=== PATIENT | male | born 1940 | race Caucasian/White ===

== ENCOUNTER 2017-06-22 10:38 | Inpatient (IN) | payer OTHER ==
[2017-06-02 11:24] VITALS: Ht 182.9 cm; Wt 100.6 kg
--- NOTE | 2017-06-02 12:12 | PAT Medication Instructions ---
Service Date Jun 02, 2017. Current Home Medication List Acetaminophen W/ Codeine (Tylenol/Codeine #4), 1 TAB PO QID PRN for Pain B-Complex Vitamins (Vitamin B Complex), 1 TAB PO QAM Dallrii-Hhbwqzxjr-Sfus (Calcium/Magnesium/Zinc 333.33-133.33-5 mg), 1 TAB PO QAM Coenzyme Q10 (Ubidecarenone) (Coq-10), 1 TAB PO QAM Ezetimibe (Zetia), 10 MG PO QAM Fluticasone Propionate (Nasal) (Flonase Allergy Relief), 2 SPRAYS NA QD PRN for Nasal Congestion Ibuprofen Tab (Advil), 800 MG PO QD PRN for Pain Krill Oil (Krill Oil), 1 CAP PO QAM Red Yeast Rice Extract (Red Yeast Rice), 2 TAB PO QAM Telmisartan (Micardis), 80 MG PO QAM Vitamin D & K (D3 + K2 Dots), 1 TAB PO QAM Vitamin E (E-400), 1 CAP PEG QAM [active C], 500 MG PO QAM Medication Instructions For Your Scheduled Surgery - Hold the following medications 2 weeks prior to surgery: Vitamin E (E-400), 1 CAP PEG QAM Krill Oil (Krill Oil), 1 CAP PO QAM Red Yeast Rice Extract (Red Yeast Rice), 2 TAB PO QAM Coenzyme Q10 (Ubidecarenone) (Coq-10), 1 TAB PO QAM - Check with surgeon for instructions: Ibuprofen Tab (Advil), 800 MG PO QD PRN for Pain - Hold the following medications the morning of surgery: B-Complex Vitamins (Vitamin B Complex), 1 TAB PO QAM Gltrwpz-Wrckeeynk-Ejib (Calcium/Magnesium/Zinc 333.33-133.33-5 mg), 1 TAB PO QAM Telmisartan (Micardis), 80 MG PO QAM Vitamin D & K (D3 + K2 Dots), 1 TAB PO QAM [active C], 500 MG PO QAM - Take the following medications the morning of surgery with a sip of water: Fluticasone Propionate (Nasal) (Flonase Allergy Relief), 2 SPRAYS NA QD PRN for Nasal Congestion Ezetimibe (Zetia), 10 MG PO QAM Acetaminophen W/ Codeine (Tylenol/Codeine #4), 1 TAB PO QID PRN for Pain (okay to take up to 4 hours prior to surgery if needed) - Take the following medications as scheduled the night before surgery: Fluticasone Propionate (Nasal) (Flonase Allergy Relief), 2 SPRAYS NA QD PRN for Nasal Congestion(if needed) Acetaminophen W/ Codeine (Tylenol/Codeine #4), 1 TAB PO QID PRN for Pain (if needed) If you have any questions please call us at [phone] or [phone] or [phone]
[2017-06-02 12:25] LABS: BASO % 0.9 %; BASO ABS # 0.05 K/uL (0-0.2); EOS % 3.5 %; EOS ABS # 0.19 K/uL (0-0.5); HEMATOCRIT 44.5 % (42-52); HEMOGLOBIN 15.6 g/dL (14.0-18.0); LYMPH % 30.9 %; LYMPH ABS # 1.68 K/uL (1.2-3.4); MEAN CELL VOLUME 89.5 fL (80-100); MEAN CORPUSCULAR HEMOGLOBIN 31.4 pg (25-34); MEAN CORPUSCULAR HGB CONC 35.1 g/dl (32-36); MEAN PLATELET VOLUME 9.1 fL (7.4-10.4); MONO % 6.8 %; MONO ABS # 0.37 K/uL (0.11-0.59); NEUT % 57.9 %; NEUT ABS # 3.14 K/uL (1.4-6.5); PLATELET COUNT 236 K/uL (130-400); RED CELL DISTRIBUTION WIDTH SD 45.8 fL (36.4-46.3); WHITE BLOOD COUNT 5.43 K/uL (4.8-10.8)
--- NOTE | 2017-06-02 12:32 | DIAGNOSTIC IMAGING REPORT ---
CHEST 2 VIEWS ROUTINE CLINICAL HISTORY: pat preoperative evaluation COMPARISON STUDY: No previous studies for comparison. FINDINGS: Mild emphysematous change. No significant cardiac enlargement. No focal infiltrate. Moderate degenerative change thoracic spine. IMPRESSION: Emphysematous change. No acute process. The above report was generated using voice recognition software. It may contain grammatical, syntax or spelling errors. Electronically signed by: Bob Rosenbaum M.D. 06/02/2017 12:30 PM Dictated Date/Time: 06/02/2017 12:30 PM
[2017-06-02 12:37] LABS: PTT PATIENT 26.6 SECONDS (21.0-31.0)
[2017-06-02 12:39] LABS: CALCIUM 9.4 mg/dl (8.5-10.1); CREATININE 1.06 mg/dl (0.60-1.40); POTASSIUM 4.7 mmol/L (3.5-5.1)
--- NOTE | 2017-06-21 17:17 | HISTORY & PHYSICAL EXAMINATION ---
DATE OF ADMISSION: 06/22/2017 HISTORY AND PHYSICAL ADMISSION NOTE CHIEF COMPLAINT: Primary osteoarthritis of the left hip. HISTORY OF PRESENT ILLNESS: Joon is a pleasant 76-year-old male who has been having several year history of left hip pain. The pain comes from his back and radiates down the anterior aspect of his hip. He has lot of pain in the groin. He did have an MRI of his back, which showed stenosis at L4-L5, but he went to pain management and injections in his hip gave him complete relief. He then presented to my office. X-rays of the left hip do show advanced osteoarthritis and after failing conservative treatment, he has elected to proceed with an anterior left total hip arthroplasty. PAST MEDICAL HISTORY: Significant for hyperlipidemia and hypertension. PAST SURGICAL HISTORY: Significant for surgery to his foot, hernia repair on the left side and a left total knee arthroplasty. ALLERGIES: None. MEDICATIONS: Include Micardis 80 mg, Zetia 10 mg, Flonase 50 mcg, calcium, magnesium, zinc and several other vitamins and minerals. FAMILY HISTORY: Significant for stroke; bladder, breast and lung cancer. SOCIAL HISTORY: He is , has 3 kids. Never drinks, is moderately active. REVIEW OF SYSTEMS: Complains mostly of left hip and groin pain. All other pertinent review of systems is negative. PHYSICAL EXAMINATION: GENERAL: He is awake, alert and orient x3; he is no apparent distress. He is very pleasant. HEENT: Pupils equal, round, reactive to light. Extraocular motors intact. Oral mucosa is pink and moist. HEART: Regular rate per radial pulse. LUNGS: Nisha symmetrically bilaterally with no audible breath sounds. ABDOMEN: Soft, nontender, nondistended. MUSCULOSKELETAL: On physical examination, he walks with a slightly antalgic gait. All his pain is located in his groin. He has trouble lying flat on the table. I can flex him to 80 degrees with his hip. He has 0 degrees of internal rotation, severe groin pain. He has about 20 degrees of external rotation. IMAGING DATA: X-rays of the left hip do show advanced osteoarthritis with joint space narrowing and osteophyte formation. IMPRESSION: Advanced osteoarthritis of the left hip. PLAN: We will proceed with an anterior left total hip arthroplasty. Postoperatively, he will be started on aspirin for DVT prophylaxis and kept overnight in the hospital for postoperative medical management.
[~2017-06-22] VITALS: Ht 182.9 cm; Wt 100.6 kg
[2017-06-22] VITALS (7 sets, daily range): BP systolic 117–155; BP diastolic 71–84; PULSE 57–71; TEMP 36.4–36.5; O2SAT 93–98
[~2017-06-22 10:38] MED LIST: ACET-1079 PO; ACETAMINOPHEN 500 MG TAB PO SCH; B-COTAB18 PO; BUPIVACAINE 0.5 % 5 MG/1 ML PF 10ML VIAL ONE; CEFAZOLIN 2000MG IV PUSH 15 ML IV SCH; COEN100C11 PO; EZET10TA63 PO; FAMOTIDINE 20 MG TAB PO SCH; FLUT0.15; GABAPENTIN 300 MG CAP PO SCH; IBUP-103 PO; KRIL1000 PO; LACTATED RINGER'S 1000ML IV SCH; RED600TA PO; TELM80TA PO; VITACAP37 PEG; VITATAB8 PO; [UNRECOGNIZED DRUG - CODE] PO; [UNRECOGNIZED DRUG - OTHER] PO
[2017-06-22] MEDS ORDERED: ATROPINE SULFATE 0.1 MG/ML 5ML SYR IV PRN (11:45)
[2017-06-22] MEDS ORDERED: FENTANYL CITRATE INJ 50 MCG/1 ML 2 ML VIAL IV PRN (11:45)
[2017-06-22] MEDS ORDERED: ONDANSETRON INJ 2 MG/ML 2 ML VIAL IV PRN ×2 (11:45→17:00)
[2017-06-22] MEDS ORDERED: EpHEDrine SULFATE INJ 50 MG/ML AMP IV PRN (11:45)
--- NOTE | 2017-06-22 11:55 | History & Physical Bridge Note ---
H&P Re-Evaluation Bridge Note: I have examined the patient, reviewed the History & Physical and in the interval since the performance of the History & Physical I have noted the following changes of clinical significance: No changes noted
[2017-06-22] MEDS ORDERED: PHENYLEPHRINE 100MCG/ML 5ML SYR ONE (12:33)
[2017-06-22] MEDS ORDERED: EpHEDrine SULFATE 50MG/5ML SYR ONE (12:33)
[2017-06-22] MEDS ORDERED: PROPOFOL IV EMULSION 10 MG/ML 20 ML VIAL IV ONE ×4 (12:33→16:28)
[2017-06-22] MEDS ORDERED: MIDAZOLAM HCL 1 MG/ML 2ML VIAL ONE ×3 (12:33→16:13)
[2017-06-22] MEDS ORDERED: LIDOCAINE HCL 2% 2 ML VIAL (20MG/ML) ONE ×2 (12:33→15:12)
[2017-06-22] MEDS ORDERED: FENTANYL CITRATE INJ 50 MCG/1 ML 2 ML VIAL ONE (12:33)
[2017-06-22] MEDS ORDERED: BACITRACIN 50000 UNIT VIAL ONE (13:46)
[2017-06-22] MEDS ORDERED: ORTHO JOINT ANESTHETIC ONE (13:46)
[2017-06-22] MEDS: TRANEXAMIC ACID INJ 1,000 MG x 2 Bags IV SCH ×4 (13:56→18:00)
[2017-06-22] MEDS ORDERED: ROPIVACAINE 5MG/ML 30 ML 150 MG, BUPIVACAINE 0.5% MPF INJ 30 ML, EpINEphrine HCL INJ 0.... INFIL SCH ×8 (15:00)
[2017-06-22] MEDS ORDERED: ONDANSETRON INJ 2 MG/ML 2 ML VIAL ONE (15:12)
[2017-06-22] MEDS ORDERED: WATER, STERILE FOR INJ 10 ML VIAL ONE (15:13)
[2017-06-22] MEDS ORDERED: EpHEDrine SULFATE INJ 50 MG/ML AMP ONE (15:13)
--- NOTE | 2017-06-22 16:42 | DIAGNOSTIC IMAGING REPORT ---
L HIP UNILATERAL 1 VIEW CLINICAL HISTORY: LEFT ANTERIOR HIP joint replacement COMPARISON: None. DISCUSSION: Image intensifier was utilized for a left hip replacement via an anterior approach. Expected soft tissue postoperative change. IMPRESSION: Image intensifier utilized for a total left hip replacement via an anterior approach. The above report was generated using voice recognition software. It may contain grammatical, syntax or spelling errors. Electronically signed by: Bob Rosenbaum M.D. 06/22/2017 4:40 PM Dictated Date/Time: 06/22/2017 4:39 PM
--- NOTE | 2017-06-22 16:51 | [facility] Post Operative Brief Note ---
Immediate Operative Summary Operative Date Jun 22, 2017. Pre-Operative Diagnosis Advanced osteoarthritis of the left hip Post-Operative Diagnosis Advanced osteoarthritis of the left hip Procedure(s) Performed Left Anterior Total Hip Replacement-Uncemented Surgeon Dr. Rodríguez Outreach Analyst Surgeon(s) Anika RAMIREZ Estimated Blood Loss 250ml Findings Consistent with Post-Op Diagnosis Specimens a. left femoral head Drains None Anesthesia Type Spinal MAC Complication(s) none Disposition Disposition: Recovery Room / PACU
[2017-06-22] MEDS ORDERED: FLUTICASONE PROPIONATE NA SPR 16 GM BTL PRN (17:00)
[2017-06-22] MEDS ORDERED: SOD PHOSPHATE/SOD BIPHOSPHATE ENEMA 132 ML BTL PR PRN (17:00)
[2017-06-22] MEDS ORDERED: MoRPHine SULFATE 2 MG/ML CARP IV PRN (17:00)
[2017-06-22] MEDS ORDERED: METOCLOPRAMIDE HCL INJ 5 MG/ML 2 ML VIAL IV PRN (17:00)
[2017-06-22] MEDS ORDERED: BISACODYL 10 MG SUPP PR PRN (17:00)
[2017-06-22] MEDS ORDERED: MAGNESIUM HYDROXIDE SUSP 30 ML UDC PO PRN (17:00)
[2017-06-22] MEDS ORDERED: OXYCODONE HCL IR 5 MG TAB (IMMEDIATE RELEASE) PO PRN (17:00)
--- NOTE | 2017-06-22 17:16 | OPERATIVE REPORT ---
DATE OF OPERATION: 06/22/2017 PREOPERATIVE DIAGNOSIS: Primary osteoarthritis of the left hip. POSTOPERATIVE DIAGNOSIS: Same. PROCEDURE: Left total hip arthroplasty. SURGEON: Dr. Tal Rodríguez. DIRECTOR PATIENT FINANCIAL SERVICES: Juan Bullock PA-C, whose assistance was necessary for retraction and closure. ANESTHESIA: Spinal. COMPLICATIONS: None. CONDITION: Stable to PACU. IMPLANTS USED: I used a [employer] Taperloc total hip arthroplasty system with a size 54-mm G7 cup, a 40-mm E1 poly liner, 16-mm standard pressfit Taperloc stem, a 40-mm ceramic head with a -6 neck and a single 6.5-mm screw. INDICATIONS: Joon is a pleasant 76-year-old male who presented to my office with chronic left hip and groin pain. He had extensive lumbar workup, but after injections into his hip, his pain subsided. Once his pain returned, he elected to proceed with a left total hip arthroplasty. DESCRIPTION OF PROCEDURE: On 06/22/2017, he arrived at the [facility] for the above procedure. He was seen in the preoperative holding area and the operative extremity was identified and signed. He was given a preoperative antibiotic and a spinal anesthetic. He was taken back to the operating room, laid on the table in supine position and put under basic sedation. The left hip was then prepped and draped in sterile fashion. Time-out was done and the patient's operative extremity was properly identified. An anterior approach was used. Dissection was taken down through the fascia and the tensor muscle belly was retracted laterally and the rectus was retracted medially. The circumflex vessels were ligated and the capsule was incised. The capsule was tagged for later repair. The femoral neck was then resected and the femoral head was removed. The acetabulum was then exposed. Time was spent doing a complete circumferential capsular and labral release. Sequential reaming of the acetabulum up to a size 53 reamer was done. Final reaming was checked under fluoroscopy. A 54-mm G7 cup was then impacted into place. I was able to get an excellent pressfit and a single 6.5-mm screw was placed. An E1 poly liner was then snapped into place. Surrounding soft tissues were injected with 100 mL of an orthopedic pain control cocktail. The proximal femur was then exposed. Sequential broaching up to a size 16 broach was done. A standard head and neck assembly was applied and the hip was reduced. I was happy with the overall size of the implants, but the leg seemed a little bit long. The trials were then removed. The final size 16 stem was impacted into place. A size 40 ceramic head with a -6 neck was then impacted into place. The hip was then reduced. Final fluoroscopic images showed anatomic alignment. The wound was then irrigated with 3 liters of normal saline solution with bacitracin. The capsule was then closed with #1 Vicryl suture. Fascia was closed with #1 PDS. Skin was closed with 2-0 Vicryl, ken and a Prevena VAC dressing. He was then transferred to a hospital bed and taken to the post and he came in stable condition. He tolerated the procedure well. I attest to the content of the Intraoperative Record and any orders documented therein. Any exception s are noted below.
--- NOTE | 2017-06-22 17:18 | DIAGNOSTIC IMAGING REPORT ---
AP PELVIS AND LEFT HIP 2 VIEWS CLINICAL HISTORY: Postop hip arthroplasty osteoarthritis COMPARISON STUDY: Outside conventional radiographic study dated May 18, 2017 FINDINGS: There are postsurgical changes of a total left hip arthroplasty. The acetabular and femoral components appear well seated. There is no dislocation. IMPRESSION: Postsurgical changes of a total left hip arthroplasty. Electronically signed by: Johan Tinsley M.D. 06/22/2017 5:17 PM Dictated Date/Time: 06/22/2017 5:16 PM
--- NOTE | 2017-06-22 17:29 | Anesthesiology Progress Note ---
Anesthesia Post Op Note Date & Time Jun 22, 2017 at 17:28 Vital Signs Pain Intensity: 0 Vital Signs Past 12 Hours Date Time Temp Pulse Resp B/P (MAP) Pulse Ox O2 Delivery O2 Flow Rate FiO2 06/22/17 17:15 57 16 131/72 95 Nasal Cannula 3 06/22/17 17:05 55 16 124/77 97 Oxymask 5 06/22/17 16:59 36.5 61 16 119/63 97 Oxymask 10 06/22/17 11:17 36.5 61 18 155/77 95 Room Air Notes Mental Status: alert / awake / arousable, participated in evaluation Pt Amnestic to Procedure: Yes Nausea / Vomiting: adequately controlled Pain: adequately controlled Airway Patency, RR, SpO2: stable & adequate BP & HR: stable & adequate Hydration State: stable & adequate Anesthetic Complications: no major complications apparent
[2017-06-22] MEDS: KETOROLAC TROMETHAMINE 15 MG/ML VIAL IV. SCH ×2 (19:04→23:01)
[2017-06-22] MEDS: ACETAMINOPHEN IV 1,000 MG in EMPTY BAG 0 ML IV SCH (20:41)
[2017-06-22] MEDS: CEFAZOLIN IV 2,000 MG in SYRINGE 0 ML IV SCH (20:42)
[2017-06-22] MEDS: DOCUSATE SODIUM 100 MG CAP PO SCH (20:43)
[2017-06-22] MEDS: SENNA 8.6 MG TAB PO SCH (20:43)
[2017-06-22] MEDS: ASPIRIN 325 MG ECTAB PO SCH (20:43)
[2017-06-22] MEDS: SODIUM CHLORIDE 0.9% 1000ML 1,000 ML IV SCH (20:44)
[2017-06-23] VITALS (7 sets, daily range): BP systolic 100–133; BP diastolic 64–80; PULSE 64–77; TEMP 36.3–36.7; O2SAT 94–96
[2017-06-23] MEDS: ACETAMINOPHEN IV 1,000 MG in EMPTY BAG 0 ML IV SCH ×2 (03:57→11:52)
[2017-06-23] MEDS: CEFAZOLIN IV 2,000 MG in SYRINGE 0 ML IV SCH (03:57)
[2017-06-23] MEDS: SODIUM CHLORIDE 0.9% 1000ML 1,000 ML IV SCH ×2 (03:58→14:02)
[2017-06-23] MEDS: KETOROLAC TROMETHAMINE 15 MG/ML VIAL IV. SCH ×4 (05:41→23:22)
[2017-06-23 06:13] LABS: BASO % 0.1 %; BASO ABS # 0.01 K/uL (0-0.2); EOS % 0.1 %; EOS ABS # 0.01 K/uL (0-0.5); HEMATOCRIT 39.9 % (42-52); HEMOGLOBIN 13.6 g/dL (14.0-18.0); IG# 0.02 K/uL (0.00-0.02); LYMPH % 7.6 %; LYMPH ABS # 0.76 K/uL (1.2-3.4); MEAN CELL VOLUME 90.1 fL (80-100); MEAN CORPUSCULAR HEMOGLOBIN 30.7 pg (25-34); MEAN CORPUSCULAR HGB CONC 34.1 g/dl (32-36); MEAN PLATELET VOLUME 9.1 fL (7.4-10.4); MONO % 5.4 %; MONO ABS # 0.54 K/uL (0.11-0.59); NEUT % 86.6 %; NEUT ABS # 8.69 K/uL (1.4-6.5); PLATELET COUNT 191 K/uL (130-400); RED CELL DISTRIBUTION WIDTH CV 13.7 % (11.5-14.5); RED CELL DISTRIBUTION WIDTH SD 45.5 fL (36.4-46.3); WHITE BLOOD COUNT 10.03 K/uL (4.8-10.8)
[2017-06-23 06:40] LABS: CALCIUM 8.8 mg/dl (8.5-10.1); CREATININE 1.14 mg/dl (0.60-1.40); POTASSIUM 4.4 mmol/L (3.5-5.1)
--- NOTE | 2017-06-23 07:13 | Discharge Instructions ---
Discharge Instructions Date of Service Jun 23, 2017. Admission Reason for Admission: Left Hip Degenerative Joint Disease Discharge Discharge Diagnosis / Problem: Left Total Hip Discharge Goals Goal(s): Decrease discomfort, Improve function Activity Recommendations Activity Limitations: as noted below . Instructions / Follow-Up Instructions / Follow-Up Activity and Therapy Recommendations: * If you are using [facility] then Physical Therapy will be provided until they feel you are ready to start Outpatient Physical Therapy. If you are not using a Home Health agency then Outpatient Physical Therapy should start about 3-5 days from your day of surgery. Therapy will last about 3-6 weeks * You were shown a series of exercises in the hospital. Do these exercises three times each day including the exercises you were shown in physical therapy. * Get up and walk several times each day.~ For the first four weeks, try not to stand or walk for more than one hour at a time. If you do stand or walk for more than one hour, you will not hurt anything, but your leg will likely swell.~ ~ * As you feel comfortable, you may change from the walker or crutches to a cane and~then to independent walking. Medications: * Narcotic You will likely be sent home from the hospital with a prescription for the narcotic pain medication that worked best throughout your stay. * Aspirin Most patients will be required to take Aspirin 325mg twice a day for 6 weeks after surgery. This is obtained [id number] and a prescription is not necessary. * Other medications may be prescribed for specific circumstances. If you have any questions, please call the office at . * Resume previous home medications unless otherwise instructed TEDs/Elastic Stockings: The white elastic stockings help limit swelling and prevent blood clots from forming in your legs. The more you wear them, the more they work. Wear them for six weeks. Dressing Care: You will likely have a purple VAC dressing after surgery. This dressing will keep the incision dry and promote early healing. After about 8 days the batteries will wear out and the VAC will lose suction. Simply remove the dressing at that time and throw everything away, including the small suction machine. Then, you may leave the ken open to air or cover them with a dry dressing so they do not rub on your pants. The ken will be removed at your 2 week follow-up appointment. Showering: You may shower immediately with the purple VAC dressing. Let the shower spray hit your opposite side and slowly pat the plastic dry. Do not soak the dressing. After the dressing is removed you may shower normally with the ken exposed. Let soapy water run over the ken and pat them dry. Things To Watch For: * Drainage from the incision site that occurs more than one week after your surgery. * Increased redness at the incision site. * Fever above 102 degrees Fahrenheit. * Unusual chest pain or shortness of breath. * Call [facility] at with any of the above problems Follow-Up Visit: Follow-up with Dr. Rodríguez 2 weeks after your day of surgery. An appointment was probably scheduled when you signed-up for surgery in the office. If you have any questions call Office Instructions: More detailed instructions as well as Frequently Asked Questions were provided in a folder by our office when you signed-up for surgery. Please review these instructions when you get home. If you have any further questions or concerns, please feel free to call the office at [phone] Current Hospital Diet Patient's current hospital diet: Regular Diet Discharge Diet Recommended Diet: Regular Diet Procedures Procedures Performed: Left Anterior Total Hip Replacement-Uncemented Pending Studies Studies pending at discharge: no Medical Emergencies . Who to Call and When: Medical Emergencies: If at any time you feel your situation is an emergency, please call [phone] immediately. . Non-Emergent Contact Non-Emergency issues call your: Surgeon Call Non-Emergent contact if: wound has increased drainage, wound has increased redness . "Provider Documentation" section prepared by Tal Rodríguez. .
--- NOTE | 2017-06-23 07:22 | PROGRESS NOTE ---
DATE: 06/23/2017 CHIEF COMPLAINT: Status post left total hip arthroplasty postop day #1. PROGRESS: Joon was seen and examined at bedside today. Overall, he is doing very well. He has little to no pain in his hip. He has been up and ambulating to the bathroom, but not further than that. He has no complaints. PHYSICAL EXAMINATION: LEFT HIP: The Prevena VAC dressing is to suction. His leg lengths are essentially equal. He has active dorsiflexion, plantar flexion of the left ankle and sensation is intact. LABORATORY DATA: He has an H&H today of 13.6 and 39.9. His glucose is 148. His vital signs are all stable on room air. He is voiding on his own. X-rays postoperatively of the left hip show the prosthesis in an anatomic alignment without any evidence of fracture, dislocation or loosening. IMPRESSION: Status post left total hip arthroplasty postop day #1. PLAN: At this point, he is doing very well. He can be up and ambulating today with therapy. I will see him first thing tomorrow morning. If everything looks good, we will send him home. He will continue aspirin for DVT prophylaxis.
[2017-06-23] MEDS: EZETIMIBE 10MG TAB PO SCH (08:35)
[2017-06-23] MEDS: DOCUSATE SODIUM 100 MG CAP PO SCH ×2 (08:35→20:39)
[2017-06-23] MEDS: ASPIRIN 325 MG ECTAB PO SCH ×2 (08:35→20:39)
[2017-06-23] MEDS: TELMISARTAN 40 MG TAB PO SCH (08:36)
[2017-06-23] MEDS: MULTIVITAMIN TAB PO SCH (08:36)
[2017-06-23] MEDS: SENNA 8.6 MG TAB PO SCH (20:39)
[2017-06-23] MEDS: ACETAMINOPHEN 500 MG TAB PO SCH (21:38)
[2017-06-24] MEDS: KETOROLAC TROMETHAMINE 15 MG/ML VIAL IV. SCH (05:44)
[2017-06-24] MEDS: ACETAMINOPHEN 500 MG TAB PO SCH (05:45)
[2017-06-24 06:02] VITALS: BP 135/73; PULSE 82; TEMP 36.4; O2SAT 96
[2017-06-24] MEDS ORDERED: OXYC1CAP5 PO (07:00)
[2017-06-24] MEDS ORDERED: ASPI325T45 PO (07:00)
--- NOTE | 2017-06-24 07:10 | Orthopedic Progress Note ---
Orthopedic Progress Note Date of Service Jun 24, 2017. Subjective Post OP Day: 2 Reports: feeling well, pain controlled w PO medications Objective calves soft nontender, A&O x3 Date Time Temp Pulse Resp B/P (MAP) Pulse Ox O2 Delivery O2 Flow Rate FiO2 06/24/17 06:02 36.4 82 16 135/73 (93) 96 Room Air 06/23/17 23:20 Room Air 06/23/17 22:53 36.7 72 16 127/72 (90) 94 Room Air 06/23/17 15:34 36.5 71 20 133/70 (91) 96 Room Air 06/23/17 15:20 Room Air 06/23/17 11:45 36.6 77 20 108/68 (81) 96 Room Air 06/23/17 08:19 94 Room Air 06/23/17 07:49 36.4 64 22 130/80 (97) 94 Room Air 06/23/17 07:44 95 Room Air Assessment & Plan Assessment: CHIEF COMPLAINT: Status post left total hip arthroplasty postop day #2. PROGRESS: Joon was seen and examined at [facility] this morning. Overall, he is doing very well. He has little to no pain in his hip, it is well controlled with oral pain medication. He has been up and ambulating to the bathroom, and has therapy scheduled for this morning. He is ready to be discharged home with home health and his therapist Tal is scheduled for a session with him tomorrow. PHYSICAL EXAMINATION: LEFT HIP: The Prevena VAC dressing is to suction. His leg lengths are essentially equal. He has active dorsiflexion, plantar flexion of the left ankle and sensation is intact. There are no signs of infection. IMPRESSION: Status post left total hip arthroplasty postop day #2. PLAN: At this point, he is doing very well. He can be up and ambulating today with therapy. He will be discharged to home with home health. Printed discharge instructions were given to him. He was also given a script of Oxycodone 5mg #60 as well as ASA 325. He is to take ASA 325 BID X 6 weeks as well as wear his CLAUDY stocking X 6 weeks. He is to follow-up in the office in 10-14 days. If he has any questions or concerns he may call the office at [phone]. Inhouse Planning Pain Management: other (Oxycodone ) Discharge Planning Discharge Planning: home with home health DVT Prophylaxis: TEDs, ASA
[2017-06-24 07:30] VITALS: O2SAT 96
[2017-06-24] MEDS: EZETIMIBE 10MG TAB PO SCH (08:47)
[2017-06-24] MEDS: DOCUSATE SODIUM 100 MG CAP PO SCH (08:47)
[2017-06-24] MEDS: ASPIRIN 325 MG ECTAB PO SCH (08:47)
[2017-06-24] MEDS: MULTIVITAMIN TAB PO SCH (08:47)
[2017-06-24] MEDS: TELMISARTAN 40 MG TAB PO SCH (08:47)
[2017-06-24 10:11] VITALS: BP 135/73; PULSE 82; TEMP 36.4; O2SAT 96
--- NOTE | 2017-06-24 15:17 | Anesthesiology Progress Note ---
Anesthesia Post Op Note Date & Time Jun 24, 2017 at 15:16 Vital Signs Pain Intensity: 0.0 Vital Signs Past 12 Hours Date Time Temp Pulse Resp B/P (MAP) Pulse Ox O2 Delivery O2 Flow Rate FiO2 06/24/17 10:11 36.4 82 16 96 Room Air 06/24/17 07:30 96 Room Air 06/24/17 06:02 36.4 82 16 135/73 (93) 96 Room Air Notes Mental Status: alert / awake / arousable, participated in evaluation Pt Amnestic to Procedure: Yes Nausea / Vomiting: adequately controlled Pain: adequately controlled Airway Patency, RR, SpO2: stable & adequate BP & HR: stable & adequate Hydration State: stable & adequate Neuraxial Anesthesia: sensory block resolved Anesthetic Complications: no major complications apparent This post-op visit was made on June 23, 2017 @ 07:30 AM
== END 2017-06-24 11:47 | disposition home health service (06) | DRG 470 ==
LOC: C.ACU 10:38 → C.3E 10:55 → ENRESERV 17:10
PROVIDERS: ADMIT Orthopaedic Surgery; ATTEND Orthopaedic Surgery
PROC: 0SRB04A Replacement of Left Hip Joint with Ceramic on Polyethylene Synthetic Substitute, Uncemented, Open Approach (ICD-10-PCS; principal; 2017-06-22 13:15)
DX: M16.12 Unilateral primary osteoarthritis, left hip (principal); M48.061 Spinal stenosis, lumbar region without neurogenic claudication; I10 Essential (primary) hypertension; E78.5 Hyperlipidemia, unspecified; E66.9 Obesity, unspecified; Z68.30 Body mass index [BMI] 30.0-30.9, adult; Z87.891 Personal history of nicotine dependence; Z79.899 Other long term (current) drug therapy; Z96.652 Presence of left artificial knee joint; Z98.41 Cataract extraction status, right eye; Z98.42 Cataract extraction status, left eye; Z98.890 Other specified postprocedural states; Z82.3 Family history of stroke; Z80.1 Family history of malignant neoplasm of trachea, bronchus and lung; Z80.3 Family history of malignant neoplasm of breast; Z80.52 Family history of malignant neoplasm of bladder